=== PATIENT | female | born 1990 ===

== ENCOUNTER 2018-04-08 15:50 | Inpatient (IN) | payer OTHER ==
[~2018-04-08] VITALS: Ht 162.6 cm; Wt 74.8 kg
[2018-04-22] MEDS ORDERED: PRENATAL TABLE1 EAC2 PO (15:31)
== END 2018-04-26 14:04 | disposition home or self-care (01) | DRG 788 ==
LOC: LDR → OB/GYN 04-22 13:54 → LDR 04-22 14:34 → OB/GYN 04-23 10:26 → LDR 04-24 15:49 → OB/GYN 04-26 14:04
PROVIDERS: Obstetrics & Gynecology
PROC: 3E0P7VZ Introduction of Hormone into Female Reproductive, Via Natural or Artificial Opening (ICD-10-PCS; 2018-04-23)
PROC: 4A1HXCZ Monitoring of Products of Conception, Cardiac Rate, External Approach (ICD-10-PCS; 2018-04-23)
PROC: 10D00Z1 Extraction of Products of Conception, Low, Open Approach (ICD-10-PCS; principal; 2018-04-23 06:00)
DX: O82 Encounter for cesarean delivery without indication (principal); Z3A.39 39 weeks gestation of pregnancy; Z37.0 Single live birth

== ENCOUNTER 2018-04-22 11:36 | Outpatient (CLI) | payer OTHER ==
[2018-04-22] MEDS ORDERED: PRENATAL TABLE1 EAC2 PO (15:31)
== END 2018-04-22 14:49 | disposition still patient (30) ==
LOC: OBS/DEL 11:36
DX: Z34.03 Encounter for supervision of normal first pregnancy, third trimester (principal)

== ENCOUNTER 2018-05-03 11:16 | Outpatient (CLI) | payer OTHER ==
[~2018-05-03 11:16] MED LIST: PRENATAL TABLE1 EAC2 PO
== END 2018-05-03 11:18 | disposition home or self-care (01) ==
LOC: RAD 11:16
DX: S13.4XXA Sprain of ligaments of cervical spine, initial encounter (principal); M43.12 Spondylolisthesis, cervical region

== ENCOUNTER → 2023-08-31 10:14 | Outpatient (CLI) | payer OTHER | END | disposition home or self-care (01) | LOC: PRENATAL 10:14 | PROVIDERS: ATTEND Obstetrics & Gynecology Maternal & Fetal Medicine | DX: O36.80X0 Pregnancy with inconclusive fetal viability, not applicable or unspecified (principal); Z36.82 Encounter for antenatal screening for nuchal translucency; Z36.9 Encounter for antenatal screening, unspecified; O09.529 Supervision of elderly multigravida, unspecified trimester; O34.219 Maternal care for unspecified type scar from previous cesarean delivery; Z3A.11 11 weeks gestation of pregnancy ==